=== PATIENT | female | born 1995 | race Caucasian/White ===

== ENCOUNTER → 2020-08-01 17:51 | Outpatient (CLI) | payer OTHER, SELFPAY | PROVIDERS: Referring Provider Otolaryngology; Visit Provider Otolaryngology | DX: Z11.59 Encounter for screening for other viral diseases (principal) | CPT/HCPCS: 87635; C9803; U0003 ==

== ENCOUNTER 2020-08-07 09:43 | Day surgery (SDC) | payer OTHER, SELFPAY ==
[2020-08-07 10:18] VITALS: BP 126/97; PULSE 91; RESP 16; TEMP 37.5; O2SAT 95; BMI 19.8
[2020-08-07 10:25] LABS: Hematocrit 42.1 % (37-47); Hemoglobin 13.7 g/dL (12.0-15.0); Mean Corp Hgb Conc 32.5 g/dL (32-36); Mean Corpuscular Hgb 28.8 pg (27.0-32.0); Mean Corpuscular Volume 88.6 fL (81-99); Platelet Count 188 K/mm3 (150-450); RBC Distribution Width CV 11.7 % (11.6-14.6); RBC Distribution Width SD 37.4 fl (35.1-43.9); Red Blood Count 4.75 M/mm3 (4.2-5.4); White Blood Count 4.4 K/mm3 (4.4-11.0)
[2020-08-07] MEDS: Lactated Ringers 1,000 ML 100 ML IV (10:27)
[2020-08-07 10:34] LABS: Internal QC Validated? YES +Cl - CLEAR BKGD; Pregnancy, Urine Negative Negative
[2020-08-07 10:46] LABS: AST(SGOT) 19 U/L (15-37); Alanine Aminotransfer ALT/SGPT 20 U/L (13-56); Albumin, Serum 4.2 g/dL (3.2-5.0); Alkaline Phosphatase 49 U/L (45-117); Bilirubin, Direct 0.15 mg/dL (0.00-0.30); Globulin 2.8 g/dL (2.2-4.2)
[2020-08-07 10:54] LABS: International Normalized Ratio 1.3
[2020-08-07 10:55] LABS: Partial Thromboplast Time 30.2 Seconds (24.1-36.2)
[2020-08-07] MEDS: Oxymetazoline 0.05% 1 SPRAY SPRAY.BTL 15 SPRAY (12:22)
[2020-08-07] MEDS: Mupirocin Ointment 22gm Tube 1 APPLIC (13:29)
[2020-08-07] MEDS: Lidocaine 1% /Epi 1:100 (20ml) 20 ML Vial (14:00)
--- NOTE | 2020-08-07 14:56 | DCINST_ITS ---
You will use the following diet at home:: No restrictions Your food should be the consistency of: Regular Discharge Activity: May not drive while taking narcotic pain medications. Call your doctor if your incision/area has: Increased Pain/ Swelling Additional Dressing/Incision Instructions:: sleep with your head of bed elevated. keep the bridge of your nose dry. saline to both nostrils 5 times daily. mupirocin to incision and nostrils 3 times daily. Allergies/Adverse Reactions: Allergies latex Allergy (Verified 08/07/20 10:03) Itching Medications to take at Discharge NK 08/06/20 Primary Care Physician: Care Physician,No Primary [Primary Care Provider] - Test Results: Test results from this visit will be discussed in further detail at your follow- up appointment, if applicable. Please Follow Up With: Job Renae MD When: 1 week
--- NOTE | 2020-08-07 15:01 | PCM.OPRPT ---
Problem List (1) Nasal congestion Status: Chronic (2) Acquired nasal deformity Status: Chronic (3) Nasal turbinate hypertrophy Status: Chronic (4) Nasal valve collapse Status: Chronic (5) Nasal bones, closed fracture Status: Chronic Report of Operation Date of Procedure: 08/07/20 Pre-Operative Diagnosis: 1. nasal congestion. 2. nasal septal deviation. 3. nasal valve collapse, right and left. 4. turbinate hypertrophy, right and left. 5. nasal bone fracture. 6. aquired nasal deformity Post-Operative Diagnosis: 1. nasal congestion. 2. nasal septal deviation. 3. nasal valve collapse, right and left. 4. turbinate hypertrophy, right and left. 5. nasal bone fracture. 6. aquired nasal deformity Surgery/Procedure Performed:: 1. open septoplasty. 2. correction internal nasal valve collapse, right and left. 3. submucous resection inferior turbinates, right and left. 4. open reduction nasal bone fracture Type of Anesthesia:: General Description of Procedure: On the day of the procedure, after appropriate informed consent was obtained, the patient was brought to the operating room and placed in a supine position on the operating room table. The patient was placed under general endotracheal anesthesia by the anesthesiologist. The endotracheal tube was secured. The eyes were taped. The table was rotated 90 degrees towards the surgeon. Lacri-Lube was placed in the eyes and Tegaderm was placed over the eyes. The nose was injected with 1% lidocaine with epinephrine. The face was prepped and draped in sterile fashion. An inverted-V columellar incision was made with a [place] blade. This traversed into the left and right marginal incisions in the nose. It was opened with three-point retraction and an Iris scissors. The left and right lower lateral cartilages were skeletonized. This was taken to the left scroll region and the left upper lateral cartilages were skeletonized as was the right scroll region and right upper lateral cartilage. The anterior septal angle was found by lateralizing the medial crura. However, it was severely deviated to the left and off the maxillary crest. This was carefully dissected using the Divide-tip Bovie. The submucoperichondrial flaps were created with the [place] elevator, first on the left and then the right posteriorly to the bony cartilaginous junction and inferiorly to the maxillary crest. Anteriorly, the patient had a very severe left to mid septal deviation. It was nearly occluding the nasal airway. A [place] elevator was used to disarticulate the bony cartilaginous junction. A D knife was used to remove the deviated portions of the septum leaving a 1.5cm L-strut. The deviated portions of the perpendicular plate of the ethmoid bone and vomer were removed using a Germain-Freitas. The head of the right and left inferior turbinates were injected with 1% lidocaine with epinephrine. The head of the left inferior turbinate was incised with a #15 blade. This was dissected submucosally using the [place] elevator, reduced using suction electrocautery, and outfractured using a Boies elevator. Similarly, on the right, the head of the right inferior turbinate was incised with a #15 blade. This was dissected submucosally using a [place] elevator, reduced using suction electrocautery, and outfractured using a Boies elevator. 2mm stab incisions were made at the junction of the nasal dorsum and right/left lateral nasal sidewalls. using a 2mm osteotome, medial and lateral osteotomies were made on the patient's left then right. the severely deviated bony pyramid was then medialized and restored. A 2 mm x 1 cm internal import specialist graft was placed on the left side and sutured with 4-0 PDS. Additionally, a 2 mm x 1 cm internal import specialist graft was placed on the right side and sutured with 4-0 PDS. At this point, the nose was significantly re-stabilized. Multiple dermal sutures were used to refashion the nasal tip for stability to prevent collapse and a 5 mm x 2 mm columellar strut was used to prevent collapse. The submucoperichondrial flaps were closed with numerous 4-0 chromic sutures several incorporating the anterior septal reconstruction. The inverted-V columellar incision was closed with 7-0 Vicryl and the marginal incisions with interrupted 4-0 chromic. Watters splints were placed and a dorsal nasal splint was placed. The nose was irrigated with normal saline and the table was rotated 90 degrees toward the anesthesiologist.
[2020-08-07 15:09] VITALS: BP 113/80; BP 126/97; PULSE 85; RESP 14; TEMP 37; O2SAT 92
[2020-08-07 15:15] VITALS: BP 121/79; BP 126/97; PULSE 79; RESP 14; O2SAT 98
[2020-08-07 15:30] VITALS: BP 119/75; BP 126/97; PULSE 80; RESP 14; O2SAT 100
[2020-08-07 15:45] VITALS: BP 120/74; BP 126/97; PULSE 83; RESP 16; TEMP 37.4; O2SAT 95
[2020-08-07 17:15] VITALS: BP 115/67; BP 126/97; PULSE 73; RESP 16; TEMP 37.4; O2SAT 96
== END 2020-08-07 17:23 | disposition home or self-care (01) ==
LOC: SDC 09:45 → AC 09:46
PROVIDERS: Anesthesiology; Referring Provider Otolaryngology; Visit Provider Otolaryngology
PROC: (CPT 30140; principal; 2020-08-07 11:00)
DX: J34.2 Deviated nasal septum (principal); J34.3 Hypertrophy of nasal turbinates; M95.0 Acquired deformity of nose; R09.81 Nasal congestion; Z87.891 Personal history of nicotine dependence
CPT/HCPCS: 00160; 30140; 30465; 30520; 36415; 80076; 81025; 85027; 85610; 85730; J7120; J2405